=== PATIENT | female | born 1985 | race Caucasian/White ===

== ENCOUNTER → 2017-01-04 | Outpatient (CLI) | payer BC ==
[2017-01-04 15:58] LABS: HEMATOCRIT 35.8 % (37.0-47.0); HEMOGLOBIN 12.2 g/dL (12.0-16.0); MEAN CORPUSCULAR HEMOGLOBIN 32.8 PG (27-31); MEAN CORPUSCULAR HGB CONC 34.1 g/dL (33-37); RDW COEFFICIENT OF VARIATION 14.3 % (11.5-14.5); RED BLOOD COUNT 3.72 10^6/uL (4.20-5.40); WHITE BLOOD COUNT 9.53 10^3/uL (4.8-10.8)
== END ==
LOC: LAB 14:28
PROVIDERS: ATTEND Obstetrics & Gynecology
DX: Z36 Encounter for antenatal screening of mother (principal)
CPT/HCPCS: 82950; 85027